=== PATIENT | female | born 1995 | race Two or more races ===

== ENCOUNTER 2018-05-08 07:00 | Inpatient (IN) | payer OTHER ==
[~2018-05-08] VITALS: Ht 170.2 cm; Wt 74.8 kg
[2018-05-15] MEDS ORDERED: PRENATAL TABLE1 EAC1 PO (12:44)
== END 2018-05-17 13:13 | DRG 768 ==
LOC: EDBD 05-15 10:35 → OB/GYN 05-15 10:35 → LDR 05-15 10:35 → OB/GYN 05-15 21:18
PROVIDERS: ADMIT Specialist
PROC: 10E0XZZ Delivery of Products of Conception, External Approach (ICD-10-PCS; principal; 2018-05-15)
PROC: 0DQR0ZZ Repair Anal Sphincter, Open Approach (ICD-10-PCS; 2018-05-15)
PROC: 0W8NXZZ Division of Female Perineum, External Approach (ICD-10-PCS; 2018-05-15)
PROC: 10907ZC Drainage of Amniotic Fluid, Therapeutic from Products of Conception, Via Natural or Artificial Opening (ICD-10-PCS; 2018-05-15)
PROC: 3E033VJ Introduction of Other Hormone into Peripheral Vein, Percutaneous Approach (ICD-10-PCS; 2018-05-15)
PROC: 4A1HXCZ Monitoring of Products of Conception, Cardiac Rate, External Approach (ICD-10-PCS; 2018-05-15)
DX: O70.21 Third degree perineal laceration during delivery, IIIa (principal); Z37.0 Single live birth; Z3A.39 39 weeks gestation of pregnancy; Z22.330 Carrier of Group B streptococcus

== ENCOUNTER 2021-09-03 13:07 | Emergency (ER) | payer OTHER ==
[~2021-09-03] VITALS: Ht 172.7 cm; Wt 66.2 kg
[~2021-09-03 13:07] MED LIST: PRENATAL TABLE1 EAC1 PO
[2021-09-03] MEDS ORDERED: PRENATA CHEWAB1 EACH (13:52)
== END 2021-09-03 17:00 | disposition home or self-care (01) ==
LOC: ER 13:07
DX: O26.892 Other specified pregnancy related conditions, second trimester (principal); Z3A.14 14 weeks gestation of pregnancy; N89.8 Other specified noninflammatory disorders of vagina

== ENCOUNTER 2022-02-21 15:00 | Inpatient (IN) | payer OTHER ==
[~2022-02-21] VITALS: Ht 172.7 cm; Wt 79.4 kg
[~2022-02-21 15:00] MED LIST changes: +PRENATA CHEWAB1 EACH
== END 2022-03-03 14:44 | disposition home or self-care (01) | DRG 798 ==
LOC: EDSTATUS 15:00 → OB/GYN 03-01 06:46 → LDR 03-01 06:46 → OB/GYN 03-01 19:19
PROVIDERS: ADMIT Specialist; ATTEND Specialist
PROC: 10E0XZZ Delivery of Products of Conception, External Approach (ICD-10-PCS; principal; 2022-03-01)
PROC: 0W8NXZZ Division of Female Perineum, External Approach (ICD-10-PCS; 2022-03-01)
PROC: 4A1HXCZ Monitoring of Products of Conception, Cardiac Rate, External Approach (ICD-10-PCS; 2022-03-01)
PROC: 0UB70ZZ Excision of Bilateral Fallopian Tubes, Open Approach (ICD-10-PCS; 2022-03-02)
DX: O80 Encounter for full-term uncomplicated delivery (principal); Z37.0 Single live birth; Z3A.39 39 weeks gestation of pregnancy; Z20.822 Contact with and (suspected) exposure to COVID-19; Z30.2 Encounter for sterilization